=== PATIENT | male | born 1995 | race Caucasian/White ===

== ENCOUNTER 2017-08-14 13:33 | Emergency (ER) | payer OTHER ==
[~2017-08-14] VITALS: Ht 177.8 cm; Wt 72.6 kg
[2017-08-14 14:00] VITALS: BP 131/78
== END 2017-08-14 14:01 | disposition home or self-care (01) ==
LOC: M.ERS 13:33
DX: R20.2 Paresthesia of skin (principal); I10 Essential (primary) hypertension